=== PATIENT | female | born 1940 | race Caucasian/White ===

== ENCOUNTER → 2016-10-03 | Outpatient (CLI) | payer OTHER ==
--- NOTE | 2016-10-03 12:54 | PCVCIMAG ---
EXAM: BILATERAL CAROTID DUPLEX INDICATION: Carotid Occlusive Disease. FINDINGS: Doppler Measurements (centimeters per second): RIGHT: Peak CCA-91, Peak ECA-157, Diastolic ICA-30, Peak ICA-135, ICA/CCA Ratio-1.5. LEFT: Peak CCA-134, Peak ECA-129, Diastolic ICA-34, Peak ICA-134, ICA/CCA Ratio-1.0. RIGHT CAROTID: The carotid bulb has moderate plaque. The proximal internal carotid artery shows 40-50% stenosis. The common carotid artery shows no significant stenosis. The external carotid artery shows 50% stenosis. LEFT CAROTID: The carotid bulb has moderate plaque. The proximal internal carotid artery shows 40-50% stenosis. The common carotid artery shows less than 50% stenosis. The external carotid artery shows no significant stenosis. Antegrade flow in both vertebral arteries. IMPRESSION: 40-50% stenosis of the right internal carotid artery with moderate plaque. 40-50% stenosis of the left internal carotid artery with moderate plaque. LOC:[place] [id number]
--- NOTE | 2016-10-03 17:47 | PCVCIMAG ---
APPROVED REPORT Study performed: 10/03/2016 10:44:09 EXAM: Comprehensive 2D, Doppler, and color-flow Echocardiogram Patient Location: Echo lab Status: routine Other Information Study Quality: Good Risk Factors: Cardiac Risk Factors: HTN, Hyperlipidemia, DM Indications CVA/TIA Diabetes Dyspnea CAD Hypertension/HDD 2D Dimensions LVEF(%): 65.23 (>50%) IVSd: 8.91 (7-11mm)LVOT Diam: 19.10 (18-24mm) LVDd: 49.78 mm PWd: 8.97 (7-11mm)Ascending Ao: 27.20 (22-36mm) LVDs: 31.91 (25-40mm) Left Atrium: 36.16 (27-40mm) Aortic Root: 20.15 mm LV Single Plane 4CH: 50.11 % LV Single Plane 2CH: 60.02 %Vazquez's LVEF: 55.06 % Biplane EF: 56.3 % Volumes Left Atrial Volume (Systole) Single Plane 4CH: 55.08 mLSingle Plane 2CH: 55.87 mL LA ESV Index: 30.00 mL/m2 Aortic Valve AoV Peak Eitan.: 1.77 m/s AO Peak Gr.: 12.49 mmHgLVOT Max P.06 mmHg LVOT Max V: 1.01 m/s HOLLY Vmax: 1.63 cm2 Mitral Valve E/A Ratio: 0.8 MV Decel. Time: 207.24 ms MV E Max Eitan.: 1.06 m/s MV A Eitan.: 1.30 m/s IVRT: 51.90 ms TDI E/Lateral E': 15.14E/Medial E': 21.20 Medial E' Eitan.: 0.05 m/s Lateral E' Eitan.: 0.07 m/s Pulmonary Valve PV Peak Eitan.: 1.14 m/sPV Peak Gr.: 5.17 mmHg Pulmonary Vein P Vein S: 0.61 m/sP Vein A: 0.35 m/s P Vein D: 0.42 m/sP Vein A Dur.: 114.2 msec P Vein S/D Ratio: 1.45 Tricuspid Valve TR Peak Eitan.: 1.33 m/s TR Peak Gr.: 7.05 mmHg TV Vmax: 0.44 m/s Left Ventricle The left ventricle is normal size. There is normal LV segmental wall motion. There is normal left ventricular wall thickness. Left ventricular systolic function is normal. The left ventricular ejection fraction is within the normal range. LVEF is 55-60%. Grade I - abnormal relaxation pattern. Right Ventricle The right ventricle is normal size. The right ventricular systolic function is normal. Atria The left atrium size is normal. The right atrium size is normal. Aortic Valve The aortic valve is normal in structure. No aortic regurgitation is present. There is no aortic valvular stenosis. Mitral Valve The mitral valve is normal in structure. Mild mitral regurgitation. No evidence of mitral valve stenosis. Tricuspid Valve The tricuspid valve is normal in structure. There is no tricuspid valve stenosis. Trace tricuspid regurgitation with a PA pressure of 14mmHg. Pulmonic Valve The pulmonary valve is normal in structure. There is no pulmonic valvular regurgitation. Great Vessels The aortic root is normal in size. The ascending aorta is normal in size. IVC is normal in size and collapses with >50% inspiration The pulmonary artery is normal. Pericardium There is no pericardial effusion. There is no pleural effusion. <Conclusion> The left ventricle is normal size. Left ventricular systolic function is normal. The left ventricular ejection fraction is within the normal range. LVEF is 55-60%. Grade I - abnormal relaxation pattern. The right ventricular systolic function is normal. The left atrium size is normal. The right atrium size is normal. The aortic valve is normal in structure. Mild mitral regurgitation. There is no pericardial effusion.
== END | disposition home or self-care (01) ==
LOC: PCVCIMAG 10:24
PROVIDERS: ATTEND Internal Medicine Cardiovascular Disease
DX: I34.0 Nonrheumatic mitral (valve) insufficiency (principal); I65.23 Occlusion and stenosis of bilateral carotid arteries; I63.9 Cerebral infarction, unspecified; I25.10 Atherosclerotic heart disease of native coronary artery without angina pectoris; I10 Essential (primary) hypertension; E11.9 Type 2 diabetes mellitus without complications
CPT/HCPCS: 93306; 93880

== ENCOUNTER → 2018-02-11 | Outpatient (CLI) | payer OTHER ==
--- NOTE | 2018-02-11 14:27 | PCVCIMAG ---
EXAM: BILATERAL CAROTID DUPLEX INDICATION: Carotid Occlusive Disease. Prior bilateral carotid endarterectomies. FINDINGS: Doppler Measurements (centimeters per second): RIGHT: Peak CCA-81, Peak ECA-137, Diastolic ICA-26, Peak ICA-133, ICA/CCA Ratio-1.6. LEFT: Peak CCA-120, Peak ECA-241, Diastolic ICA-21, Peak ICA-123, ICA/CCA Ratio-1.0. RIGHT CAROTID: The carotid bulb has mild plaque. The proximal internal carotid artery shows <40% stenosis. The common carotid artery shows no significant stenosis. The external carotid artery shows 50% stenosis. LEFT CAROTID: The carotid bulb has mild plaque. The proximal internal carotid artery shows <40% stenosis. The common carotid artery shows mild stenosis. The external carotid artery shows 60% stenosis. Antegrade flow in both vertebral arteries. IMPRESSION: <40% stenosis of the right internal carotid artery with mild plaque. <40% stenosis of the left internal carotid artery with mild plaque. LOC:[place] [id number]
== END | disposition home or self-care (01) ==
LOC: PCVCIMAG 13:49
PROVIDERS: ATTEND Internal Medicine Cardiovascular Disease
DX: I65.23 Occlusion and stenosis of bilateral carotid arteries (principal)
CPT/HCPCS: 93880